=== PATIENT | female | born 1980 | race Caucasian/White ===

== ENCOUNTER 2020-06-10 08:23 | Emergency (ER) | payer OTHER ==
[~2020-06-10] VITALS: Ht 152.4 cm; Wt 112.0 kg
[2020-06-10] MEDS ORDERED: VISTARIL50 MG PO (09:33)
== END 2020-06-10 09:40 | disposition home or self-care (01) ==
LOC: ED 08:23
DX: F41.9 Anxiety disorder, unspecified (principal); F43.8 Other reactions to severe stress; R51.9 Headache, unspecified; I10 Essential (primary) hypertension

== ENCOUNTER 2022-05-29 09:02 | Emergency (ER) | payer OTHER ==
[~2022-05-29 09:02] MED LIST: VISTARIL50 MG PO
[2022-05-29] MEDS ORDERED: NAPROXEN250 MG PO (09:32)
[2022-05-29] MEDS ORDERED: METHOCARBAMOL750 M1 PO (09:32)
== END 2022-05-29 09:36 | disposition home or self-care (01) ==
LOC: ED 09:02
DX: S39.012A Strain of muscle, fascia and tendon of lower back, initial encounter (principal); F10.90 Alcohol use, unspecified, uncomplicated; X58.XXXA Exposure to other specified factors, initial encounter; Y93.89 Activity, other specified; Y92.89 Other specified places as the place of occurrence of the external cause; Y99.8 Other external cause status

== ENCOUNTER → 2024-05-20 | Outpatient (CLI) | payer OTHER ==
[~2024-05-20] MED LIST changes: +METHOCARBAMOL750 M1 PO; +NAPROXEN250 MG PO
== END | disposition home or self-care (01) ==
LOC: D 13:46
PROVIDERS: ATTEND Family Medicine
DX: E66.01 Morbid (severe) obesity due to excess calories (principal); Z71.3 Dietary counseling and surveillance